=== PATIENT | male | born 1960 | race Caucasian/White ===

== ENCOUNTER 2019-03-25 01:58 | Emergency (ER) | payer OTHER ==
[~2019-03-25] VITALS: Ht 188 cm; Wt 108.9 kg
[2019-03-25 03:09] LABS: BASOPHILS ABSOLUTE AUTO 0.02 K/mm3 (0.00-0.23); BASOPHILS PERCENT AUTO 0 % (0-2); EOSINOPHILS ABSOLUTE AUTO 0.12 K/mm3 (0.00-0.68); EOSINOPHILS PERCENT AUTO 2 % (0-6); Hematocrit 45.3 % (37.0-53.0); Hemoglobin 15.7 g/dL (13.5-17.5); IMMATURE GRAN ABSOLUTE AUTO 0.01 K/mm3 (0.00-0.10); IMMATURE GRAN PERCENT AUTO 0 % (0-1); LYMPHOCYTES ABSOLUTE AUTO 1.67 K/mm3 (0.84-5.20); LYMPHOCYTES PERCENT AUTO 34 % (21-46); MONOCYTES ABSOLUTE AUTO 0.54 K/mm3 (0.16-1.47); MONOCYTES PERCENT AUTO 11 % (4-13); Mean Corpuscular HGB 32.5 pg (26.0-34.0); Mean Corpuscular HGB Conc 34.7 g/dL (31.5-36.5); Mean Corpuscular Volume 94 fL (80-100); Mean Platelet Volume 10.9 fL (9.1-12.4); NEUTROPHILS ABSOLUTE AUTO 2.61 K/mm3 (1.96-9.15); NEUTROPHILS PERCENT AUTO 53 % (41-73); Platelet Count 152 K/mm3 (150-400); RDW Coefficient Variation 12.1 % (11.7-14.2); RDW Standard Deviation 42.2 fL (35.1-46.3); Red Blood Cell Count 4.83 M/mm3 (4.30-5.90); White Blood Cell Count 4.97 K/mm3 (4.00-11.30)
[2019-03-25 03:19] LABS: Alanine Aminotransfer (ALT/SGP 59 U/L (12-78); Albumin, Blood 3.8 g/dL (3.4-5.0); Alk Phos 67 U/L (50-136); Anion Gap 6 mmol/L (6-16); Aspartate Aminotrans (AST/SGOT 31 U/L (12-37); Bilirubin, Total 0.5 mg/dL (0.1-1.0); Blood Urea Nitrogen 11 mg/dL (8-24); Bun/Creatinine Ratio 10.1 (12.0-20.0); CO2, Blood 30 mmol/L (21-32); Calcium, Blood 9.1 mg/dL (8.5-10.1); Chloride, Blood 104 mmol/L (98-108); Creatinine, Blood 1.09 mg/dL (0.60-1.20); Globulin, Blood 3.7 g/dL (2.2-4.0); Glomerular Filtration Rate >60 (60-); Glucose, Blood 103 mg/dL (70-99); Potassium, Blood 3.7 mmol/L (3.5-5.5); Sodium, Blood 140 mmol/L (136-145); Total Protein, Blood 7.5 g/dL (6.4-8.2)
[2019-03-25] MEDS ORDERED: ONDA4ODT MM (08:19)
== END 2019-03-25 08:27 | disposition home or self-care (01) ==
LOC: ER 01:58
PROVIDERS: Emergency Medicine
DX: R10.10 Upper abdominal pain, unspecified (principal); Z88.8 Allergy status to other drugs, medicaments and biological substances
CPT/HCPCS: 36415; 74018; 80053; 83690; 85025; 99283; J2405

== ENCOUNTER 2020-06-27 23:45 | Emergency (ER) | payer SELFPAY ==
[~2020-06-27] VITALS: Ht 185.4 cm; Wt 104.3 kg
[~2020-06-27 23:45] MED LIST: ONDA4ODT MM
[2020-06-28 00:55] LABS: BASOPHILS ABSOLUTE AUTO 0.03 K/mm3 (0.00-0.23); BASOPHILS PERCENT AUTO 1 % (0-2); EOSINOPHILS ABSOLUTE AUTO 0.09 K/mm3 (0.00-0.68); EOSINOPHILS PERCENT AUTO 2 % (0-6); Hematocrit 43.2 % (37.0-53.0); Hemoglobin 15.2 g/dL (13.5-17.5); IMMATURE GRAN ABSOLUTE AUTO 0.01 K/mm3 (0.00-0.10); IMMATURE GRAN PERCENT AUTO 0 % (0-1); LYMPHOCYTES ABSOLUTE AUTO 1.38 K/mm3 (0.84-5.20); LYMPHOCYTES PERCENT AUTO 31 % (21-46); MONOCYTES ABSOLUTE AUTO 0.51 K/mm3 (0.16-1.47); MONOCYTES PERCENT AUTO 12 % (4-13); Mean Corpuscular HGB 32.4 pg (26.0-34.0); Mean Corpuscular HGB Conc 35.2 g/dL (31.5-36.5); Mean Corpuscular Volume 92 fL (80-100); Mean Platelet Volume 11.4 fL (9.1-12.4); NEUTROPHILS ABSOLUTE AUTO 2.42 K/mm3 (1.96-9.15); NEUTROPHILS PERCENT AUTO 55 % (41-73); Platelet Count 141 K/mm3 (150-400); RDW Coefficient Variation 11.9 % (11.7-14.2); RDW Standard Deviation 40.5 fL (35.1-46.3); Red Blood Cell Count 4.69 M/mm3 (4.30-5.90); White Blood Cell Count 4.44 K/mm3 (4.00-11.30)
[2020-06-28 01:07] LABS: Alanine Aminotransfer (ALT/SGP 42 U/L (12-78); Albumin, Blood 3.6 g/dL (3.4-5.0); Alk Phos 56 U/L (50-136); Anion Gap 6 mmol/L (6-16); Aspartate Aminotrans (AST/SGOT 17 U/L (12-37); Bilirubin, Total 0.4 mg/dL (0.1-1.0); Blood Urea Nitrogen 17 mg/dL (8-24); Bun/Creatinine Ratio 16.5 (12.0-20.0); CO2, Blood 26 mmol/L (21-32); Calcium, Blood 8.8 mg/dL (8.5-10.1); Chloride, Blood 106 mmol/L (98-108); Creatinine, Blood 1.03 mg/dL (0.60-1.20); Globulin, Blood 3.6 g/dL (2.2-4.0); Glomerular Filtration Rate >60 (60-); Glucose, Blood 109 mg/dL (70-99); Potassium, Blood 3.6 mmol/L (3.5-5.5); Sodium, Blood 138 mmol/L (136-145); Total Protein, Blood 7.2 g/dL (6.4-8.2)
== END 2020-06-28 01:04 | disposition left against medical advice (07) ==
LOC: ER 23:45
PROVIDERS: Student in an Organized Health Care Education/Training Program
DX: R10.9 Unspecified abdominal pain (principal); R11.2 Nausea with vomiting, unspecified; R19.7 Diarrhea, unspecified; Z88.5 Allergy status to narcotic agent; Z88.8 Allergy status to other drugs, medicaments and biological substances
CPT/HCPCS: 36415; 80053; 83690; 85025; 93005; 93010; 99283-25

== ENCOUNTER → 2020-10-02 | Outpatient (CLI) | payer OTHER ==
[2020-10-03 16:11] LABS: FATS, NEUTRAL Normal (.); FATS, TOTAL Normal (.)
== END ==
LOC: LAB 14:05 → LAB SHORT 14:05
DX: R19.7 Diarrhea, unspecified (principal)
CPT/HCPCS: 82705

== ENCOUNTER 2023-11-23 21:19 | Emergency (ER) | payer BC ==
[~2023-11-23] VITALS: Ht 188 cm; Wt 108.9 kg
[2023-11-23 22:16] LABS: BASOPHILS ABSOLUTE AUTO 0.03 K/mm3 (0.00-0.23); BASOPHILS PERCENT AUTO 1 % (0-2); EOSINOPHILS ABSOLUTE AUTO 0.07 K/mm3 (0.00-0.68); EOSINOPHILS PERCENT AUTO 1 % (0-6); Hematocrit 46.5 % (37.0-53.0); Hemoglobin 16.6 g/dL (13.5-17.5); IMMATURE GRAN PERCENT AUTO 0 % (0-1); LYMPHOCYTES ABSOLUTE AUTO 1.92 K/mm3 (0.84-5.20); LYMPHOCYTES PERCENT AUTO 31 % (21-46); MONOCYTES ABSOLUTE AUTO 0.59 K/mm3 (0.16-1.47); MONOCYTES PERCENT AUTO 10 % (4-13); Mean Corpuscular HGB Conc 35.7 g/dL (31.5-36.5); Mean Corpuscular Volume 90 fL (80-100); Mean Platelet Volume 10.3 fL (9.1-12.4); NEUTROPHILS PERCENT AUTO 57 % (41-73); Platelet Count 148 K/mm3 (150-400); RDW Standard Deviation 39.8 fL (35.1-46.3); Red Blood Cell Count 5.18 M/mm3 (4.30-5.90); White Blood Cell Count 6.11 K/mm3 (4.00-11.30)
[2023-11-23 22:37] LABS: Albumin, Blood 3.8 g/dL (3.4-5.0); Albumin/Globulin Ratio 1.1 (0.8-1.8); Bilirubin, Total 0.9 mg/dL (0.1-1.0); Bun/Creatinine Ratio 16.7 (12.0-20.0); Calcium, Blood 9.2 mg/dL (8.5-10.1); Creatinine, Blood 1.08 mg/dL (0.60-1.20); Globulin, Blood 3.6 g/dL (2.2-4.0); Total Protein, Blood 7.4 g/dL (6.4-8.2)
[2023-11-24 00:38] LABS: Source, Urine Clean Catch
[2023-11-24 00:40] LABS: Bilirubin, Urine Neg (Neg); Blood, Urine Neg (Neg); Glucose Qualitative, Urine Neg (Neg); Ketones, Urine Neg (Neg); Leukocyte Esterase, Urine Neg (Neg); Nitrite, Urine Neg (Neg); Protein, Urine Neg (Neg); Urobilinogen, Urine NORM (Normal)
[2023-11-24 00:45] LABS: Appearance, Urine Clear (Clear); Color, Urine Yellow (P-Yellow)
[2023-11-24] MEDS ORDERED: Ketorolac Tromethamine 30mg Vial IV ONE (01:50)
[2023-11-24 03:00] VITALS: BP 123/75
== END 2023-11-24 03:05 | disposition home or self-care (01) ==
LOC: ER 21:19
PROVIDERS: Student in an Organized Health Care Education/Training Program
DX: K80.20 Calculus of gallbladder without cholecystitis without obstruction (principal); K76.0 Fatty (change of) liver, not elsewhere classified; N28.1 Cyst of kidney, acquired; Z88.5 Allergy status to narcotic agent; Z88.8 Allergy status to other drugs, medicaments and biological substances
CPT/HCPCS: 80053; 81003; 83690; 85025; 96374; 99284-25; J1885

== ENCOUNTER 2024-01-08 00:14 | Emergency (ER) | payer BC ==
[~2024-01-08] VITALS: Ht 185.4 cm; Wt 106.6 kg
[2024-01-08] MEDS ORDERED: Ondansetron HCl 2 MG / ML 2ML Vial IV PRN (00:55)
[2024-01-08] MEDS ORDERED: HYDROmorphone HCl/Pf 1MG SYR IV ONE ×2 (01:00→02:05)
[2024-01-08 01:02] LABS: BASOPHILS ABSOLUTE AUTO 0.04 K/mm3 (0.00-0.23); BASOPHILS PERCENT AUTO 1 % (0-2); EOSINOPHILS PERCENT AUTO 1 % (0-6); Hematocrit 44.3 % (37.0-53.0); Hemoglobin 15.8 g/dL (13.5-17.5); IMMATURE GRAN ABSOLUTE AUTO 0.02 K/mm3 (0.00-0.10); IMMATURE GRAN PERCENT AUTO 0 % (0-1); LYMPHOCYTES PERCENT AUTO 25 % (21-46); MONOCYTES ABSOLUTE AUTO 0.71 K/mm3 (0.16-1.47); MONOCYTES PERCENT AUTO 10 % (4-13); Mean Corpuscular HGB 32.6 pg (26.0-34.0); Mean Corpuscular HGB Conc 35.7 g/dL (31.5-36.5); Mean Corpuscular Volume 91 fL (80-100); Mean Platelet Volume 10.1 fL (9.1-12.4); NEUTROPHILS ABSOLUTE AUTO 4.49 K/mm3 (1.96-9.15); NEUTROPHILS PERCENT AUTO 63 % (41-73); Platelet Count 161 K/mm3 (150-400); RDW Coefficient Variation 11.9 % (11.7-14.2); RDW Standard Deviation 39.8 fL (35.1-46.3); Red Blood Cell Count 4.85 M/mm3 (4.30-5.90); White Blood Cell Count 7.16 K/mm3 (4.00-11.30)
[2024-01-08] MEDS ORDERED: LAMOTRIGINE25 M4 PO (01:08)
[2024-01-08] MEDS ORDERED: LEVETIRACETAM50014 PO (01:08)
[2024-01-08 01:15] LABS: Albumin, Blood 3.6 g/dL (3.4-5.0); Bilirubin, Total 0.4 mg/dL (0.1-1.0); Bun/Creatinine Ratio 17.9 (12.0-20.0); Creatinine, Blood 1.23 mg/dL (0.60-1.20); Globulin, Blood 3.6 g/dL (2.2-4.0); Potassium, Blood 4.4 mmol/L (3.5-5.5); Total Protein, Blood 7.2 g/dL (6.4-8.2)
[2024-01-08 04:14] LABS: Source, Urine Clean Catch
[2024-01-08 04:20] LABS: Bilirubin, Urine Neg (Neg); Blood, Urine Neg (Neg); Glucose Qualitative, Urine Neg (Neg); Ketones, Urine Neg (Neg); Leukocyte Esterase, Urine Neg (Neg); Nitrite, Urine Neg (Neg); Protein, Urine 1+ (Neg); Urobilinogen, Urine NORM (Normal); pH, Urine 6.5 (5.0-8.0)
[2024-01-08 04:28] LABS: Appearance, Urine Clear (Clear); Color, Urine Yellow (P-Yellow)
[2024-01-08] MEDS ORDERED: ONDA4 PO (04:46)
[2024-01-08] MEDS ORDERED: DICY20 PO (04:46)
[2024-01-08 05:00] VITALS: BP 105/55
== END 2024-01-08 05:25 | disposition home or self-care (01) ==
LOC: ER 00:14
PROVIDERS: Student in an Organized Health Care Education/Training Program
DX: K80.20 Calculus of gallbladder without cholecystitis without obstruction (principal); N20.0 Calculus of kidney; Z88.5 Allergy status to narcotic agent; Z88.8 Allergy status to other drugs, medicaments and biological substances
CPT/HCPCS: 74177; 80053; 83605; 83690; 84484; 85025; 93005; 93010; 96374-59; 96375; 96376; 99284-25; J1171; J2405; Q9967

== ENCOUNTER 2024-01-15 00:17 | Emergency (ER) | payer BC ==
[~2024-01-15] VITALS: Ht 188 cm; Wt 107.5 kg
[~2024-01-15 00:17] MED LIST changes: +DICY20 PO; +LAMOTRIGINE25 M4 PO; +LEVETIRACETAM50014 PO; +ONDA4 PO
[2024-01-15] MEDS ORDERED: Ondansetron HCl 2 MG / ML 2ML Vial IV ONE (00:35)
[2024-01-15] MEDS ORDERED: Ketorolac Tromethamine 15mg Vial IV ONE (00:35)
[2024-01-15 00:40] LABS: BASOPHILS ABSOLUTE AUTO 0.02 K/mm3 (0.00-0.23); BASOPHILS PERCENT AUTO 0 % (0-2); EOSINOPHILS ABSOLUTE AUTO 0.13 K/mm3 (0.00-0.68); EOSINOPHILS PERCENT AUTO 2 % (0-6); Hematocrit 44.9 % (37.0-53.0); Hemoglobin 15.7 g/dL (13.5-17.5); IMMATURE GRAN ABSOLUTE AUTO 0.01 K/mm3 (0.00-0.10); IMMATURE GRAN PERCENT AUTO 0 % (0-1); LYMPHOCYTES ABSOLUTE AUTO 1.68 K/mm3 (0.84-5.20); LYMPHOCYTES PERCENT AUTO 25 % (21-46); MONOCYTES ABSOLUTE AUTO 0.65 K/mm3 (0.16-1.47); MONOCYTES PERCENT AUTO 10 % (4-13); Mean Corpuscular HGB 32.5 pg (26.0-34.0); Mean Corpuscular Volume 93 fL (80-100); NEUTROPHILS ABSOLUTE AUTO 4.22 K/mm3 (1.96-9.15); NEUTROPHILS PERCENT AUTO 63 % (41-73); Platelet Count 161 K/mm3 (150-400); RDW Standard Deviation 41.5 fL (35.1-46.3); Red Blood Cell Count 4.83 M/mm3 (4.30-5.90); White Blood Cell Count 6.71 K/mm3 (4.00-11.30)
[2024-01-15] MEDS ORDERED: HYDROmorphone HCl/Pf 1MG SYR IV ONE (00:40)
[2024-01-15 00:58] LABS: Albumin, Blood 3.6 g/dL (3.4-5.0); Bilirubin, Total 0.8 mg/dL (0.1-1.0); Bun/Creatinine Ratio 18.8 (12.0-20.0); Calcium, Blood 9.1 mg/dL (8.5-10.1); Creatinine, Blood 1.28 mg/dL (0.60-1.20); Globulin, Blood 3.7 g/dL (2.2-4.0); Magnesium, Blood 2.1 mg/dL (1.6-2.4); Total Protein, Blood 7.3 g/dL (6.4-8.2)
[2024-01-15] MEDS ORDERED: ACET500 PO (01:21)
[2024-01-15 01:30] VITALS: BP 124/87
== END 2024-01-15 01:30 | disposition home or self-care (01) ==
LOC: ER 00:17
PROVIDERS: Student in an Organized Health Care Education/Training Program
DX: K80.20 Calculus of gallbladder without cholecystitis without obstruction (principal); Z79.899 Other long term (current) drug therapy; Z88.5 Allergy status to narcotic agent; Z88.8 Allergy status to other drugs, medicaments and biological substances
CPT/HCPCS: 76705; 80053; 83690; 83735; 85025; 96374; 96375; 99284-25; J1171; J2405

== ENCOUNTER 2024-05-07 03:06 | Emergency (ER) | payer OTHER ==
[~2024-05-07] VITALS: Ht 188 cm; Wt 106.6 kg
[~2024-05-07 03:06] MED LIST changes: +ACET500 PO
[2024-05-07] MEDS ORDERED: LAMOTRIGINE100 M1 PO (03:20)
[2024-05-07] MEDS ORDERED: OMEP20ER PO (03:21)
[2024-05-07] MEDS ORDERED: Ondansetron HCl 2 MG / ML 2ML Vial IV ONE (03:45)
[2024-05-07] MEDS ORDERED: Morphine Sulfate 4 MG/1 ML Injection IV ONE (03:45)
[2024-05-07 03:50] LABS: BASOPHILS ABSOLUTE AUTO 0.03 K/mm3 (0.00-0.23); BASOPHILS PERCENT AUTO 1 % (0-2); EOSINOPHILS ABSOLUTE AUTO 0.06 K/mm3 (0.00-0.68); EOSINOPHILS PERCENT AUTO 1 % (0-6); Hematocrit 42.7 % (37.0-53.0); Hemoglobin 15.1 g/dL (13.5-17.5); IMMATURE GRAN ABSOLUTE AUTO 0.02 K/mm3 (0.00-0.10); IMMATURE GRAN PERCENT AUTO 0 % (0-1); LYMPHOCYTES PERCENT AUTO 18 % (21-46); MONOCYTES ABSOLUTE AUTO 0.47 K/mm3 (0.16-1.47); MONOCYTES PERCENT AUTO 8 % (4-13); Mean Corpuscular HGB 31.6 pg (26.0-34.0); Mean Corpuscular HGB Conc 35.4 g/dL (31.5-36.5); Mean Corpuscular Volume 89 fL (80-100); Mean Platelet Volume 10.7 fL (9.1-12.4); NEUTROPHILS ABSOLUTE AUTO 4.35 K/mm3 (1.96-9.15); NEUTROPHILS PERCENT AUTO 72 % (41-73); Platelet Count 122 K/mm3 (150-400); RDW Coefficient Variation 11.9 % (11.7-14.2); RDW Standard Deviation 39.3 fL (35.1-46.3); Red Blood Cell Count 4.78 M/mm3 (4.30-5.90); White Blood Cell Count 6.03 K/mm3 (4.00-11.30)
[2024-05-07 04:05] LABS: Albumin, Blood 3.7 g/dL (3.4-5.0); Albumin/Globulin Ratio 1.1 (0.8-1.8); Bilirubin, Total 0.4 mg/dL (0.1-1.0); Bun/Creatinine Ratio 21.4 (12.0-20.0); Calcium, Blood 8.5 mg/dL (8.5-10.1); Creatinine, Blood 1.03 mg/dL (0.60-1.20); Globulin, Blood 3.3 g/dL (2.2-4.0); Potassium, Blood 3.9 mmol/L (3.5-5.5)
[2024-05-07 05:00] LABS: CORONAVIRUS COVID-19 AG Negative (NEGATIVE); INFLUENZA A AG Negative (NEGATIVE); INFLUENZA B AG Negative (NEGATIVE)
[2024-05-07 08:33] VITALS: BP 131/75
== END 2024-05-07 08:35 | disposition home or self-care (01) ==
LOC: ER 03:06
PROVIDERS: Student in an Organized Health Care Education/Training Program
DX: K80.70 Calculus of gallbladder and bile duct without cholecystitis without obstruction (principal); Z90.49 Acquired absence of other specified parts of digestive tract; Z88.8 Allergy status to other drugs, medicaments and biological substances; Z79.899 Other long term (current) drug therapy; Z59.89 Other problems related to housing and economic circumstances
CPT/HCPCS: 74177; 80053; 83690; 85025; 87428-QW; 96374-59; 96375; 99284-25; J2270; J2405; Q9967

== ENCOUNTER 2024-06-16 07:08 | Observation (INO) | payer OTHER ==
[~2024-06-16] VITALS: Ht 188 cm; Wt 103.0 kg
[2024-06-16] VITALS (12 sets, daily range): BP systolic 117–158; BP diastolic 62–95
[~2024-06-16 07:08] MED LIST changes: +LAMOTRIGINE100 M1 PO; +OMEP20ER PO
[2024-06-16] MEDS ORDERED: HYDROmorphone HCl/Pf 1MG SYR IV ONE (07:30)
[2024-06-16] MEDS ORDERED: Ondansetron HCl 2 MG / ML 2ML Vial IV ONE ×2 (07:30→08:25)
[2024-06-16 07:40] LABS: BASOPHILS ABSOLUTE AUTO 0.02 K/mm3 (0.00-0.23); BASOPHILS PERCENT AUTO 0 % (0-2); EOSINOPHILS ABSOLUTE AUTO 0.06 K/mm3 (0.00-0.68); EOSINOPHILS PERCENT AUTO 1 % (0-6); Hemoglobin 15.8 g/dL (13.5-17.5); IMMATURE GRAN ABSOLUTE AUTO 0.01 K/mm3 (0.00-0.10); IMMATURE GRAN PERCENT AUTO 0 % (0-1); LYMPHOCYTES ABSOLUTE AUTO 1.64 K/mm3 (0.84-5.20); LYMPHOCYTES PERCENT AUTO 31 % (21-46); MONOCYTES ABSOLUTE AUTO 0.58 K/mm3 (0.16-1.47); MONOCYTES PERCENT AUTO 11 % (4-13); Mean Corpuscular HGB 31.6 pg (26.0-34.0); Mean Corpuscular HGB Conc 35.1 g/dL (31.5-36.5); Mean Corpuscular Volume 90 fL (80-100); Mean Platelet Volume 10.5 fL (9.1-12.4); NEUTROPHILS ABSOLUTE AUTO 3.02 K/mm3 (1.96-9.15); NEUTROPHILS PERCENT AUTO 57 % (41-73); Platelet Count 129 K/mm3 (150-400); RDW Coefficient Variation 12.2 % (11.7-14.2); RDW Standard Deviation 39.6 fL (35.1-46.3); White Blood Cell Count 5.33 K/mm3 (4.00-11.30)
[2024-06-16 08:00] LABS: Albumin/Globulin Ratio 1.2 (0.8-1.8); Bilirubin, Total 0.6 mg/dL (0.1-1.0); Bun/Creatinine Ratio 15.9 (12.0-20.0); Creatinine, Blood 1.07 mg/dL (0.60-1.20); Globulin, Blood 3.4 g/dL (2.2-4.0); Potassium, Blood 4.1 mmol/L (3.5-5.5); Total Protein, Blood 7.4 g/dL (6.4-8.2)
[2024-06-16] MEDS ORDERED: Morphine Sulfate 4 MG/1 ML Injection IV ONE (08:25)
[2024-06-16] MEDS ORDERED: Ampicillin Sod/Sulbactam Sod 3 GM in NS 100 ML IV ONE (11:00)
[2024-06-16] MEDS ORDERED: HYDROmorphone HCl/Pf 1MG SYR IV PRN (12:20)
[2024-06-16] MEDS ORDERED: Ondansetron HCl 2 MG / ML 2ML Vial IV PRN (12:20)
[2024-06-16] MEDS ORDERED: Indocyanine Green 25 MG Vial IV ONE (13:25)
[2024-06-16] MEDS ORDERED: Lactated Ringer's 1,000 ML IV SCH (14:00)
--- NOTE | 2024-06-16 14:48 | NUR ---
History, Chart, Medications and Allergies reviewed before start of procedure. Lungs clear T/O to Auscultation. Patient confirms NPO status and agrees with scheduled surgery. Pre-Op teaching done. Pt verbalizes understanding. CHG cleanser to abdomen with clip prep.
[2024-06-16] MEDS ORDERED: Bupivacaine 0.25% Epi 1:200000 30 ML Vial ONE (15:22)
[2024-06-16] MEDS ORDERED: Ondansetron HCl 2 MG / ML 2ML Vial ONE ×2 (15:39→16:55)
[2024-06-16] MEDS ORDERED: Rocuronium Bromide 10 MG/ML 5ML Injection IV ONE (15:39)
[2024-06-16] MEDS ORDERED: Ketorolac Tromethamine 30mg Vial ONE (15:39)
[2024-06-16] MEDS ORDERED: Dexamethasone Sod Phos 10 MG/ML 1ML VIAL ONE (15:39)
[2024-06-16] MEDS ORDERED: FentaNYL Citrate 50 MCG/ML 5 ML Injection ONE (15:39)
[2024-06-16] MEDS ORDERED: propofoL 20 ML IV ONE (15:39)
[2024-06-16] MEDS ORDERED: ePHEDrine Sulfate 50 MG/ML 1ML Injection ONE (15:53)
[2024-06-16] MEDS ORDERED: Sugammadex Sodium 200 MG/2ML SDV (100 MG/ML) ONE (16:54)
[2024-06-16] MEDS ORDERED: Acetaminophen 325 MG TABLET PO PRN (17:10)
[2024-06-16] MEDS ORDERED: OxyCODONE HCL 5 MG TAB PO PRN (17:10)
[2024-06-16] MEDS ORDERED: Ketorolac Tromethamine 15mg Vial IV PRN (17:15)
[2024-06-16] MEDS ORDERED: Metoclopramide HCl 5MG / ML 2ML Vial ONE (17:42)
[2024-06-16] MEDS ORDERED: FentaNYL Citrate 50 MCG/ML 2 ML Injection ONE (17:48)
--- NOTE | 2024-06-16 18:36 | NUR ---
PT ADMITTED TODAY FOR ACUTE CHOLECYSTITIS AND BROUGHT TO PREOP SHORTLY FOLLOWING ADMISSION. PT RETURNED TO THE FLOOR FROM PACU AT 1810 FOLLOWING CHOLECYSTECTOMY, AT BEDSIDE. PT C/O PAIN OF 9/10 IN ABD, MEDICATED PER EMAR, WILL REEVALUATE. PT WAS INDEPENDENT IN ROOM PRIOR TO PROCEDURE, RA, NON-TELE, ALERT AND ORIENTED X4. 4 LAP SITES WITH WOUND GLUE, CDI.
[2024-06-16] MEDS ORDERED: LamoTRIgine 100 MG Tab PO SCH (20:00)
--- NOTE | 2024-06-17 04:28 | NUR ---
SHIFT SUMMARY ANAND WAS DROWSY BUT ROUSABLE AT START OF SHIFT. HE WAS FULLY ORIENTED BUT SEEMED OUT OF IT STILL FROM SURGERY. THIS WORE OF T/O SHIFT. PAIN WELL MANAGED AT THIS TIME, DENYING NEED FOR PAIN MEDS. LAP SITES C/D/I. BT HYPOACTIVE. PT ABLE TO AMBULATE TO BR WITH SBA TO VOID. NO ACUTE EVENTS. NO NOTED CHANGES TO PT CONDITION.
[2024-06-17 05:05] LABS: BASOPHILS ABSOLUTE AUTO 0.01 K/mm3 (0.00-0.23); BASOPHILS PERCENT AUTO 0 % (0-2); EOSINOPHILS ABSOLUTE AUTO 0.03 K/mm3 (0.00-0.68); EOSINOPHILS PERCENT AUTO 1 % (0-6); Hemoglobin 14.3 g/dL (13.5-17.5); IMMATURE GRAN PERCENT AUTO 0 % (0-1); LYMPHOCYTES ABSOLUTE AUTO 1.28 K/mm3 (0.84-5.20); LYMPHOCYTES PERCENT AUTO 28 % (21-46); MONOCYTES ABSOLUTE AUTO 0.52 K/mm3 (0.16-1.47); MONOCYTES PERCENT AUTO 11 % (4-13); Mean Corpuscular HGB 31.7 pg (26.0-34.0); Mean Corpuscular HGB Conc 34.9 g/dL (31.5-36.5); Mean Corpuscular Volume 91 fL (80-100); Mean Platelet Volume 10.3 fL (9.1-12.4); NEUTROPHILS ABSOLUTE AUTO 2.76 K/mm3 (1.96-9.15); NEUTROPHILS PERCENT AUTO 60 % (41-73); Platelet Count 107 K/mm3 (150-400); RDW Coefficient Variation 12.3 % (11.7-14.2); RDW Standard Deviation 40.2 fL (35.1-46.3); Red Blood Cell Count 4.51 M/mm3 (4.30-5.90)
[2024-06-17 05:06] VITALS: BP 98/71
[2024-06-17 05:43] LABS: Bun/Creatinine Ratio 11.6 (12.0-20.0); Calcium, Blood 8.4 mg/dL (8.5-10.1); Creatinine, Blood 1.12 mg/dL (0.60-1.20)
[2024-06-17] MEDS ORDERED: Omeprazole 20 MG CapCR PO SCH (06:00)
[2024-06-17 07:34] VITALS: BP 113/68
--- NOTE | 2024-06-17 14:54 | NUR ---
DR HERRERA AND DR PAULSON IN TO SEE PT.
[2024-06-17 14:57] VITALS: BP 118/80
[2024-06-17] MEDS ORDERED: TraMADol HCl 50 MG Tab PO PRN (15:20)
--- NOTE | 2024-06-17 16:59 | NUR ---
SUMMARY PT HAS FELT MORE NAUSEATED AND BLOATED THIS AFTERNOON. AMBULATED FREQUENTLY IN HALLS. HAD LIQUID BM THIS AM BUT DENIES PASSING FLATUS OR ANY FURTHER BMS. MEDICATED THIS AFTERNOON FOR NAUSEA AND PT REPORTS HAS RESOLVED. PT REPORTED SOME DIZZINESS WITH AMBULATION TO DR PAULSON; ORDERS OBTAINED FOR TELE AND PLACED ON PT. STRIP SHOWS SINUS [place]WTON. PT REPORTS SOME "SQUEEZING" PAIN TO ABD, STATING NOT SEVERE "JUST KIND OF ANNOYING". PT ABLE TO TAKE NAP THIS AFTERNOON. CALL LIGHT IN REACH.
[2024-06-17 21:12] VITALS: BP 150/87
[2024-06-18 04:29] VITALS: BP 132/86
--- NOTE | 2024-06-18 06:07 | NUR ---
SHIFT SUMMARY PT S/P LAP TAD. PT HAS BEEN UP AND AMBULATING IN THE HALLWAY, AND IN HIS ROOM. INTERMITTENT ABD PAIN RELEIVED WITH MEDS PER EMAR. PT BOWEL TONES ARE HYPERACTIVE, AND PT NOW REPORTING THAT HE IS PASSING A SMALL AMOUNT OF GAS. AND HAS PASSED A LITTLE BIT OF CLEAR LIQUID STOOL. NO N/V, PT TOLERATING PO FLUIDS. SURGICAL SITE WNL. VITALS STABLE, NSR ON TELE. PLAN OF CARE REMAINS UNCHANGED. BED IN LOWEST POSITION, CALL LIGHT WITHIN REACH.
[2024-06-18 07:03] VITALS: BP 137/84
--- NOTE | 2024-06-18 09:19 | NUR ---
PT AMBULATING MULTIPLE LOOPS OF FLOOR INDEPENDENTLY ACCOMPANIED BY SO. AWAITING DISCHARGE THIS AFTERNOON PER PT.
[2024-06-18] MEDS ORDERED: ACET325 PO (12:31)
[2024-06-18] MEDS ORDERED: TRAM50 PO (12:32)
--- NOTE | 2024-06-18 12:47 | NUR ---
DISCHARGE INSTRUCTION REVIEWED WITH PT AND SO. HANDWRITTEN RX ULTRAM DISPENSED. STATED UNDERSTANDING. IV DC'D INTACT. DC'D TO POV VIA W/C.
== END 2024-06-18 12:50 | disposition home or self-care (01) ==
LOC: ER 07:08 → SURS 07:09 → ERHOLD 07:09 → SURS 12:56
PROVIDERS: Student in an Organized Health Care Education/Training Program; Surgery; ADMIT Hospitalist
PROC: 0FT44ZZ Resection of Gallbladder, Percutaneous Endoscopic Approach (ICD-10-PCS; principal; 2024-06-16 14:30)
DX: K80.12 Calculus of gallbladder with acute and chronic cholecystitis without obstruction (principal); G40.909 Epilepsy, unspecified, not intractable, without status epilepticus; R42 Dizziness and giddiness; Z87.891 Personal history of nicotine dependence; Z79.899 Other long term (current) drug therapy; Z88.8 Allergy status to other drugs, medicaments and biological substances; Z90.49 Acquired absence of other specified parts of digestive tract
CPT/HCPCS: 36415; 74177; 76705; 80048; 80053; 83605; 83690; 85025; 88304; 93005; 93010; 96365-59; 96375; 96376; 99285-25; A9270; G0378; J0295; J1100; J1171; J1885; J2270; J2405; J2704; J2765; J3010; J7120; Q9967

== ENCOUNTER 2024-09-05 10:44 | Day surgery (SDC) | payer OTHER ==
[2024-09-05] VITALS (11 sets, daily range): BP systolic 89–137; BP diastolic 69–90
[~2024-09-05] VITALS: Ht 188 cm; Wt 99.3 kg
[~2024-09-05 10:44] MED LIST changes: +ACET325 PO; +FISH OIL 1,0001 EA10 PO; +Hair, Skin & N1 EACH PO; +Multivitamin1 EAC1 PO; +TRAM50 PO
[2024-09-05] MEDS ORDERED: Verapamil HCL 2.5 MG/ML 2ML Injection ONE (11:46)
[2024-09-05] MEDS ORDERED: Heparin Sodium 1000 Units/ML 10ML MDV ONE ×2 (11:46→11:57)
[2024-09-05] MEDS ORDERED: Nitroglycerin 2 MG/20 ML BTL ONE (11:46)
[2024-09-05] MEDS ORDERED: NS 1,000 ML IV ONE ×2 (11:46→11:57)
[2024-09-05] MEDS ORDERED: NS 250 ML IV ONE (11:46)
[2024-09-05] MEDS ORDERED: FentaNYL Citrate 50 MCG/ML 2 ML Injection ONE (11:57)
[2024-09-05] MEDS ORDERED: Midazolam HCl 1MG / ML 2ML Vial ONE (11:57)
--- NOTE | 2024-09-05 12:51 | NUR ---
PT RETURNED TO RECOVERY ROOM IN A RECLINER. RIGHT RADIAL TR BAND SITE SOFT NON-TENDER WITH NO HEMATOMA, NO PULSATILE BLEEDING AND RIGHT WRIST BOARD IN PLACE. PT DENIES CHEST PAIN. PT EATING LUNCH. CALL LIGHT IN REACH. PT'S FAMILY MEMBER IN ROOM.
--- NOTE | 2024-09-05 12:54 | NUR ---
DR MAKI IN ROOM TO SEE PT AND FAMILY.
--- NOTE | 2024-09-05 13:04 | NUR ---
NO CHANGES TO R RADIAL TR BAND SITE.
--- NOTE | 2024-09-05 13:14 | NUR ---
NO CHANGES TO R RAD TR BAND SITE.
--- NOTE | 2024-09-05 13:55 | NUR ---
FULL REPORT PROVIDED TO NARCISO MEHTA TO ASSUME CARE OF PT.
--- NOTE | 2024-09-05 14:01 | NUR ---
1350, CARE ASSUMED OF PATIENT, TR BAND SITE REVIEWED, WNL. 3 CC AIR REMOVED W/O ISSUES.
--- NOTE | 2024-09-05 14:18 | NUR ---
TR BAND AIR REMOVED OVER 30MIN, SITE REMAINS WNL WITHOUT SWELLING, BLEEDING, TENDERNESS, OR HEMATOMA. PATIENT SIPPING ON COFFEE W/O COMPLAINTS. PT'S AT SIDE, DR MAKI IN EARLIER TO SPEAK WITH PT AND PT'S .
--- NOTE | 2024-09-05 15:23 | NUR ---
VERBAL AND WRITTEN DC INSTRUCTIONS GIVEN TO PT AND PT'S WITH CLEAR UNDERSTANDING. PT UP TO RESTROOM, KRISTINA WELL. TR BAND REMOVED AND DRSG PLACED. SITE WNL W/O HEMATOMA, SWELLING, TENDERNESS, OR BLEEDING. WRIST IMMOBILIZER IN PLACE. IV DC'D INTACT. PT DC'D HOME IN STABLE CONDITION IN CARE OF AT 1520. PT ESCORTED OUT TO CAR VIA W/C.
== END 2024-09-05 15:29 | disposition home or self-care (01) ==
LOC: MHTC 10:44
DX: I25.9 Chronic ischemic heart disease, unspecified (principal); R55 Syncope and collapse; Z79.899 Other long term (current) drug therapy; Z88.8 Allergy status to other drugs, medicaments and biological substances; Z88.5 Allergy status to narcotic agent
CPT/HCPCS: 76937; 93458; 99152; A9270; C1769; C1887; C1894; J1644; J2250; J3010; J7030; J7050; Q9967

== ENCOUNTER 2024-09-15 09:21 | Emergency (ER) | payer OTHER ==
[~2024-09-15] VITALS: Ht 188 cm; Wt 124.7 kg
[2024-09-15 09:30] VITALS: BP 140/104
[2024-09-15 09:58] LABS: BASOPHILS ABSOLUTE AUTO 0.03 K/mm3 (0.00-0.23); BASOPHILS PERCENT AUTO 1 % (0-2); EOSINOPHILS ABSOLUTE AUTO 0.09 K/mm3 (0.00-0.68); EOSINOPHILS PERCENT AUTO 2 % (0-6); Hematocrit 46.9 % (37.0-53.0); Hemoglobin 16.5 g/dL (13.5-17.5); IMMATURE GRAN ABSOLUTE AUTO 0.01 K/mm3 (0.00-0.10); IMMATURE GRAN PERCENT AUTO 0 % (0-1); LYMPHOCYTES ABSOLUTE AUTO 1.54 K/mm3 (0.84-5.20); LYMPHOCYTES PERCENT AUTO 38 % (21-46); MONOCYTES ABSOLUTE AUTO 0.42 K/mm3 (0.16-1.47); MONOCYTES PERCENT AUTO 10 % (4-13); Mean Corpuscular HGB Conc 35.2 g/dL (31.5-36.5); Mean Corpuscular Volume 90 fL (80-100); NEUTROPHILS ABSOLUTE AUTO 2.02 K/mm3 (1.96-9.15); NEUTROPHILS PERCENT AUTO 49 % (41-73); NRBC ABSOLUTE 0.00 K/mm3 (0.00-0.02); NRBC Auto 0.0 /100 WBC (0.0-0.2); Platelet Count 146 K/mm3 (150-400); RDW Coefficient Variation 11.9 % (11.7-14.2); RDW Standard Deviation 39.3 fL (35.1-46.3)
[2024-09-15 10:31] LABS: Alanine Aminotransfer (ALT/SGP 37.0 U/L (12-78); Albumin, Blood 3.8 g/dL (3.4-5.0); Albumin/Globulin Ratio 0.9 (0.8-1.8); Anion Gap 10.0 mmol/L (3-11); Aspartate Aminotrans (AST/SGOT 31.0 U/L (12-37); Bilirubin, Total 0.9 mg/dL (0.1-1.0); Blood Urea Nitrogen 17.0 mg/dL (8-24); CO2, Blood 23.0 mmol/L (21-32); Calcium, Blood 8.8 mg/dL (8.5-10.1); Chloride, Blood 106.0 mmol/L (98-108); Creatinine, Blood 1.0 mg/dL (0.60-1.20); Globulin, Blood 4.2 g/dL (2.2-4.0); Glucose, Blood 113.0 mg/dL (70-99); Potassium, Blood 4.6 mmol/L (3.5-5.5); Sodium, Blood 134.0 mmol/L (136-145); Total Protein, Blood 8.0 g/dL (6.4-8.2)
== END 2024-09-15 12:21 | disposition home or self-care (01) ==
LOC: ER 09:21
PROVIDERS: Student in an Organized Health Care Education/Training Program
DX: K91.86 Retained cholelithiasis following cholecystectomy (principal); M25.511 Pain in right shoulder; Z88.8 Allergy status to other drugs, medicaments and biological substances; Z88.5 Allergy status to narcotic agent; Z79.899 Other long term (current) drug therapy; Z87.442 Personal history of urinary calculi
CPT/HCPCS: 71046; 74177; 80053; 83690; 84484; 85025; 93005; 93010; 99284-25; Q9967

== ENCOUNTER 2024-10-28 10:28 | Emergency (ER) | payer OTHER ==
[~2024-10-28] VITALS: Ht 188 cm; Wt 103.0 kg
[2024-10-28] MEDS ORDERED: HYDROmorphone HCl/Pf 1MG SYR IV ONE (10:40)
[2024-10-28 10:59] LABS: BASOPHILS ABSOLUTE AUTO 0.02 K/mm3 (0.00-0.23); BASOPHILS PERCENT AUTO 1 % (0-2); EOSINOPHILS ABSOLUTE AUTO 0.09 K/mm3 (0.00-0.68); EOSINOPHILS PERCENT AUTO 3 % (0-6); Hematocrit 42.4 % (37.0-53.0); Hemoglobin 15.2 g/dL (13.5-17.5); IMMATURE GRAN ABSOLUTE AUTO 0.00 K/mm3 (0.00-0.10); IMMATURE GRAN PERCENT AUTO 0 % (0-1); LYMPHOCYTES ABSOLUTE AUTO 0.97 K/mm3 (0.84-5.20); LYMPHOCYTES PERCENT AUTO 31 % (21-46); MONOCYTES ABSOLUTE AUTO 0.52 K/mm3 (0.16-1.47); MONOCYTES PERCENT AUTO 17 % (4-13); Mean Corpuscular HGB Conc 35.8 g/dL (31.5-36.5); Mean Corpuscular Volume 91 fL (80-100); NEUTROPHILS ABSOLUTE AUTO 1.56 K/mm3 (1.96-9.15); NEUTROPHILS PERCENT AUTO 49 % (41-73); NRBC ABSOLUTE 0.00 K/mm3 (0.00-0.02); NRBC Auto 0.0 /100 WBC (0.0-0.2); Platelet Count 115 K/mm3 (150-400); RDW Coefficient Variation 12.1 % (11.7-14.2); RDW Standard Deviation 40.0 fL (35.1-46.3)
[2024-10-28 11:36] LABS: Alanine Aminotransfer (ALT/SGP 32.0 U/L (12-78); Albumin, Blood 3.7 g/dL (3.4-5.0); Albumin/Globulin Ratio 1.1 (0.8-1.8); Anion Gap 6.0 mmol/L (3-11); Aspartate Aminotrans (AST/SGOT 33.0 U/L (12-37); Bilirubin, Total 1.0 mg/dL (0.1-1.0); Blood Urea Nitrogen 20.0 mg/dL (8-24); CO2, Blood 27.0 mmol/L (21-32); Calcium, Blood 9.2 mg/dL (8.5-10.1); Chloride, Blood 107.0 mmol/L (98-108); Creatinine, Blood 1.02 mg/dL (0.60-1.20); Globulin, Blood 3.5 g/dL (2.2-4.0); Glucose, Blood 123.0 mg/dL (70-99); Potassium, Blood 4.2 mmol/L (3.5-5.5); Sodium, Blood 136.0 mmol/L (136-145); Total Protein, Blood 7.2 g/dL (6.4-8.2)
[2024-10-28] MEDS ORDERED: ONDA4ODT MM (12:36)
[2024-10-28] MEDS ORDERED: HYDR1TAB94 PO (12:36)
[2024-10-28 12:53] VITALS: BP 113/74
== END 2024-10-28 12:54 | disposition home or self-care (01) ==
LOC: ER 10:28
PROVIDERS: Emergency Medicine
DX: K80.20 Calculus of gallbladder without cholecystitis without obstruction (principal); R10.11 Right upper quadrant pain; M25.511 Pain in right shoulder; Z88.5 Allergy status to narcotic agent; Z79.899 Other long term (current) drug therapy; Z87.442 Personal history of urinary calculi
CPT/HCPCS: 76705; 80053; 83690; 84484; 85025; 93005; 93010; 96374; 99284-25; J1171

== ENCOUNTER 2025-01-21 20:03 | Emergency (ER) | payer OTHER ==
[~2025-01-21] VITALS: Ht 188 cm; Wt 102.1 kg
[~2025-01-21 20:03] MED LIST changes: +HYDR1TAB94 PO
[2025-01-21 20:34] LABS: BASOPHILS ABSOLUTE AUTO 0.02 K/mm3 (0.00-0.23); BASOPHILS PERCENT AUTO 0 % (0-2); EOSINOPHILS ABSOLUTE AUTO 0.06 K/mm3 (0.00-0.68); EOSINOPHILS PERCENT AUTO 1 % (0-6); Hematocrit 45.7 % (37.0-53.0); Hemoglobin 16.1 g/dL (13.5-17.5); IMMATURE GRAN ABSOLUTE AUTO 0.01 K/mm3 (0.00-0.10); IMMATURE GRAN PERCENT AUTO 0 % (0-1); LYMPHOCYTES ABSOLUTE AUTO 1.44 K/mm3 (0.84-5.20); LYMPHOCYTES PERCENT AUTO 28 % (21-46); MONOCYTES ABSOLUTE AUTO 0.48 K/mm3 (0.16-1.47); MONOCYTES PERCENT AUTO 9 % (4-13); Mean Corpuscular HGB Conc 35.2 g/dL (31.5-36.5); Mean Corpuscular Volume 90 fL (80-100); NEUTROPHILS ABSOLUTE AUTO 3.21 K/mm3 (1.96-9.15); NEUTROPHILS PERCENT AUTO 62 % (41-73); NRBC ABSOLUTE 0.00 K/mm3 (0.00-0.02); NRBC Auto 0.0 /100 WBC (0.0-0.2); Platelet Count 132 K/mm3 (150-400); RDW Coefficient Variation 11.9 % (11.7-14.2); RDW Standard Deviation 39.1 fL (35.1-46.3)
[2025-01-21 20:53] LABS: Alanine Aminotransfer (ALT/SGP 30.0 U/L (12-78); Albumin, Blood 4.1 g/dL (3.4-5.0); Albumin/Globulin Ratio 1.2 (0.8-1.8); Anion Gap 8.0 mmol/L (3-11); Aspartate Aminotrans (AST/SGOT 19.0 U/L (12-37); Bilirubin, Total 0.7 mg/dL (0.1-1.0); Blood Urea Nitrogen 19.0 mg/dL (8-24); CO2, Blood 25.0 mmol/L (21-32); Calcium, Blood 9.1 mg/dL (8.5-10.1); Chloride, Blood 107.0 mmol/L (98-108); Creatinine, Blood 1.1 mg/dL (0.60-1.20); Globulin, Blood 3.4 g/dL (2.2-4.0); Glucose, Blood 98.0 mg/dL (70-99); Potassium, Blood 3.9 mmol/L (3.5-5.5); Sodium, Blood 136.0 mmol/L (136-145); Total Protein, Blood 7.5 g/dL (6.4-8.2)
[2025-01-21] MEDS ORDERED: FentaNYL Citrate 50 MCG/ML 2 ML Injection IV PRN (23:55)
[2025-01-22 02:51] LABS: Source, Urine Clean Catch
[2025-01-22 03:00] LABS: Bilirubin, Urine Neg (Neg); Glucose Qualitative, Urine Neg (Neg); Ketones, Urine Neg (Neg); Leukocyte Esterase, Urine Neg (Neg); Protein, Urine 2+ (Neg); Specific Gravity, Urine 1.025 (1.003-1.022); Urobilinogen, Urine NORM (Normal)
[2025-01-22 03:03] LABS: Color, Urine Yellow (P-Yellow)
[2025-01-22 03:11] LABS: Red Blood Cells, Urine Not Seen /hpf (0-2); White Blood Cells, Urine 0-2 /hpf (0-5)
[2025-01-22 04:00] VITALS: BP 122/76
== END 2025-01-22 04:09 | disposition home or self-care (01) ==
LOC: ER 20:03
PROVIDERS: Emergency Medicine
DX: R10.11 Right upper quadrant pain (principal); N20.0 Calculus of kidney; Z90.49 Acquired absence of other specified parts of digestive tract; Z88.5 Allergy status to narcotic agent; Z88.8 Allergy status to other drugs, medicaments and biological substances; Z79.899 Other long term (current) drug therapy; Z59.89 Other problems related to housing and economic circumstances
CPT/HCPCS: 74177; 80053; 81001; 83690; 84484; 85025; 96374-59; 99284-25; J3010; Q9967